=== PATIENT | female | born 1950 | race Hispanic/Latino ===

== ENCOUNTER → 2021-10-14 | Outpatient (CLI) | payer OTHER, MEDICARE ==
[~2021-10-14] MED LIST: AMLO-257 PO; CARV6.2579 PO; CETI10TA57 PO; DICY10CA13 PO; FLUT16H NS; FURO20TA4 PO; GLIM2TAB30 PO; HYDR25TA PO; INSLAN SQ; INSU100I35 SQ; LEVO50 PO; LOSA100T58 PO; MELO10CA3 PO; METO-391 PO; OXYB5TAB15 PO; SERT-439 PO; SITA100T12 PO; [UNRECOGNIZED DRUG - OTHER]
== END | disposition home or self-care (01) ==
LOC: RAH 11:08
PROVIDERS: ATTEND Internal Medicine
DX: Z12.31 Encounter for screening mammogram for malignant neoplasm of breast (principal)
CPT/HCPCS: 77067

== ENCOUNTER → 2021-10-26 | Outpatient (CLI) | payer OTHER, MEDICARE | END | disposition home or self-care (01) | LOC: RAH 10:55 | PROVIDERS: ATTEND Internal Medicine | DX: M47.816 Spondylosis without myelopathy or radiculopathy, lumbar region (principal); M54.50 Low back pain, unspecified | CPT/HCPCS: 72100 ==

== ENCOUNTER → 2021-11-18 | Outpatient (CLI) | payer OTHER | END | disposition home or self-care (01) | LOC: RAH 16:02 | PROVIDERS: ATTEND Internal Medicine | DX: M17.11 Unilateral primary osteoarthritis, right knee (principal) | CPT/HCPCS: 73560 ==

== ENCOUNTER → 2021-11-19 | Outpatient (CLI) | payer OTHER | LOC: RAH 08:52 | PROVIDERS: ATTEND Internal Medicine | DX: M17.12 Unilateral primary osteoarthritis, left knee (principal) | CPT/HCPCS: 73560 ==

== ENCOUNTER → 2022-01-05 | Outpatient (CLI) | payer OTHER, MEDICARE | END | disposition home or self-care (01) | LOC: SHCH 07:42 | PROVIDERS: ATTEND Internal Medicine | DX: I11.0 Hypertensive heart disease with heart failure (principal); I50.9 Heart failure, unspecified; E11.9 Type 2 diabetes mellitus without complications; E66.01 Morbid (severe) obesity due to excess calories | CPT/HCPCS: 93306 ==

== ENCOUNTER → 2022-10-21 | Outpatient (CLI) | payer OTHER, MEDICARE | END | disposition home or self-care (01) | LOC: RAH 08:38 | PROVIDERS: ATTEND Internal Medicine | DX: Z12.31 Encounter for screening mammogram for malignant neoplasm of breast (principal) | CPT/HCPCS: 77067 ==

== ENCOUNTER → 2024-02-07 | Outpatient (CLI) | payer OTHER, MEDICARE ==
[~2024-02-07] MED LIST changes: -DICY10CA13 PO; +DICY10CA2 PO; -LOSA100T58 PO; +LOSA100T59 PO; -OXYB5TAB15 PO; +OXYB5TAB20 PO
== END | disposition home or self-care (01) ==
LOC: RAH 15:46
PROVIDERS: ATTEND Internal Medicine
DX: M25.561 Pain in right knee (principal); M25.562 Pain in left knee

== ENCOUNTER → 2024-03-01 | Outpatient (CLI) | payer OTHER, MEDICARE ==
[2024-03-01 10:37] LABS: ALBUMIN 3.4 g/dL (3.5-5.0); BILIRUBIN,TOTAL 0.4 mg/dL (0.2-1.0); CREATININE 0.9 mg/dL (0.5-1.0); POTASSIUM 3.5 mmol/L (3.5-5.1); THYROID STIMULATING HORMONE 5.72 uIU/mL (0.36-3.74); TOTAL PROTEIN, SERUM 7.1 g/dL (6.0-8.3)
== END | disposition home or self-care (01) ==
LOC: LAB 09:20
PROVIDERS: ATTEND Internal Medicine
DX: E11.65 Type 2 diabetes mellitus with hyperglycemia (principal); N18.2 Chronic kidney disease, stage 2 (mild); E78.2 Mixed hyperlipidemia; E03.9 Hypothyroidism, unspecified
CPT/HCPCS: 36415; 80053; 80061; 82985; 84443

== ENCOUNTER → 2024-04-08 | Outpatient (CLI) | payer OTHER, MEDICARE | END | disposition home or self-care (01) | LOC: RAH 13:16 | PROVIDERS: ATTEND Internal Medicine | DX: E03.9 Hypothyroidism, unspecified (principal); R13.10 Dysphagia, unspecified; R09.89 Other specified symptoms and signs involving the circulatory and respiratory systems | CPT/HCPCS: 76536 ==

== ENCOUNTER → 2024-04-24 | Outpatient (CLI) | payer OTHER, MEDICARE ==
[~2024-04-24] MED LIST changes: +ALBUTEROL 0.083% 2.5 MG/3 ML INH IH ONE
== END | disposition home or self-care (01) ==
LOC: RESP 14:19
PROVIDERS: ATTEND Internal Medicine Cardiovascular Disease
DX: R06.02 Shortness of breath (principal)
CPT/HCPCS: 94060

== ENCOUNTER → 2024-09-02 | Outpatient (CLI) | payer OTHER, MEDICARE ==
[~2024-09-02] MED LIST changes: -ALBUTEROL 0.083% 2.5 MG/3 ML INH IH ONE; +DICY-20 PO; -DICY10CA2 PO
[2024-09-02 10:10] LABS: BASOPHILS # (AUTO) 0.07 K/uL (0.00-0.20); BASOPHILS % (AUTO) 0.8 % (0.0-5.0); EOSINOPHILS # (AUTO) 0.25 K/uL (0.00-0.70); EOSINOPHILS % (AUTO) 2.8 % (0.0-8.0); HEMATOCRIT 45.1 % (36-48); IMMATURE GRANULOCYTE ABSOLUTE 0.03 K/uL (0-1); LYMPHOCYTES # (AUTO) 3.2 K/uL (1.0-4.8); MEAN CORPUSCULAR HEMOGLOBIN 30.6 pg (27.0-33.0); MEAN CORPUSCULAR HGB CONC 33.9 g/dL (32.0-36.0); MEAN CORPUSCULAR VOLUME 90.2 fL (79-99); MONOCYTES # (AUTO) 0.5 K/uL (0.1-1.0); MONOCYTES % (AUTO) 5.1 % (3.0-13.0); NEUTROPHILS # (AUTO) 5.1 K/uL (1.8-7.7); PLATELET COUNT (AUTO) 262 K/uL (130-400)
[2024-09-02 10:30] LABS: HEMOGLOBIN A1C 7.6 % (4.0-6.0)
[2024-09-02 10:34] LABS: ALBUMIN 3.6 g/dL (3.5-5.0); BILIRUBIN,TOTAL 0.7 mg/dL (0.2-1.0); CREATININE 0.8 mg/dL (0.5-1.0); POTASSIUM 3.9 mmol/L (3.5-5.1); THYROID STIMULATING HORMONE 4.48 uIU/mL (0.36-3.74); TOTAL PROTEIN, SERUM 7.3 g/dL (6.0-8.3)
== END | disposition home or self-care (01) ==
LOC: LAB 09:14
PROVIDERS: ATTEND Internal Medicine
DX: I13.0 Hypertensive heart and chronic kidney disease with heart failure and stage 1 through stage 4 chronic kidney disease, or unspecified chronic kidney disease (principal); E11.22 Type 2 diabetes mellitus with diabetic chronic kidney disease; N18.2 Chronic kidney disease, stage 2 (mild); E11.65 Type 2 diabetes mellitus with hyperglycemia; I50.9 Heart failure, unspecified; E03.9 Hypothyroidism, unspecified; E78.2 Mixed hyperlipidemia
CPT/HCPCS: 36415; 80053; 80061; 82043; 82570; 83036; 83970; 84443; 85025

== ENCOUNTER 2024-10-31 16:04 | Emergency (ER) | payer OTHER, MEDICARE ==
[~2024-10-31] VITALS: Ht 142.2 cm; Wt 81.6 kg
[2024-10-31 16:05] VITALS: TEMP 97.6
--- NOTE | 2024-10-31 16:10 | NUR ---
PT JUST NOW PLACED IN MY ED BED 10
[2024-10-31] MEDS: LIDOCAINE 4% ADH..PATCH TP ONE (16:38)
[2024-10-31] MEDS: methoCARBamol 500 MG TABLET PO ONE (16:38)
[2024-10-31 17:00] LABS: BASOPHILS # (AUTO) 0.05 K/uL (0.00-0.20); BASOPHILS % (AUTO) 0.7 % (0.0-5.0); EOSINOPHILS # (AUTO) 0.25 K/uL (0.00-0.70); EOSINOPHILS % (AUTO) 3.3 % (0.0-8.0); HEMATOCRIT 42.2 % (36-48); IMMATURE GRANULOCYTE ABSOLUTE 0.03 K/uL (0-1); LYMPHOCYTES % (AUTO) 39.5 % (21.0-51.0); MEAN CORPUSCULAR HEMOGLOBIN 30.5 pg (27.0-33.0); MEAN CORPUSCULAR HGB CONC 33.4 g/dL (32.0-36.0); MEAN CORPUSCULAR VOLUME 91.1 fL (79-99); MONOCYTES # (AUTO) 0.5 K/uL (0.1-1.0); MONOCYTES % (AUTO) 6.4 % (3.0-13.0); NEUTROPHILS # (AUTO) 3.8 K/uL (1.8-7.7); NEUTROPHILS % (AUTO) 49.7 % (40.0-77.0); PLATELET COUNT (AUTO) 229 K/uL (130-400); RED BLOOD CELL COUNT(AUTO) 4.63 MIL/uL (4.00-5.50); RED CELL DISTRIBUTION WIDTH 13.4 % (11.0-15.5); WHITE BLOOD COUNT (AUTO) 7.6 K/uL (4.8-10.8)
--- NOTE | 2024-10-31 17:06 | HMCIMG ---
PORTABLE CHEST RADIOGRAPH INDICATION: shoulder pain COMPARISON: None FINDINGS: Heart size is normal. The pulmonary vascularity and blane appear normal. No abnormal pulmonary parenchymal opacity or consolidation identified. No significant pleural effusion noted. No pneumothorax detected. IMPRESSION: No radiographic evidence for any acute cardiopulmonary process.
[2024-10-31 17:09] LABS: CREATININE 0.7 mg/dL (0.5-1.0); POTASSIUM 3.5 mmol/L (3.5-5.1)
--- NOTE | 2024-10-31 17:11 | ERN ---
ED Note History of Present Illness Stated Complaint: BACK PAIN Chief Complaint: Back Injury Time Seen by MD: 16:06 Time Seen by Midlevel: 16:10 Dictation: 74-year-old female with a history of hypertension, cholesterol, diabetes coming in with complaints of left shoulder pain radiating to her neck area. Denies any trauma. Denies any chest pain or chest discomfort. Patient states the pain is worse when she moves her arm up or down. Allergies: Coded Allergies: No Known Allergies (Unverified Allergy, Unknown, 09/22/21) Home Meds Reported Medications [lotrison] No Conflict Check, .AD BID 09/23/21 Insulin NPH Hum/Reg Insulin Hm (Novolin 70-30 Flexpen) 100 Unit/1 Ml Insuln.pen, 3-8 UNIT SQ TIDMEALS for prn sliding scale 150-400, SYRINGE 09/23/21 Sertraline HCl (Sertraline HCl) 50 Mg Tablet, 50 MG PO DAILY, TAB 09/23/21 Oxybutynin Chloride (Oxybutynin Chloride) 5 Mg Tablet, 5 MG PO BIDAC, TAB 09/23/21 Metoprolol Succinate (Metoprolol Succinate) 50 Mg Tab.er.24h, 50 MG PO DAILY, TAB 09/23/21 Meloxicam, Submicronized (Meloxicam) 10 Mg Capsule, 7.5 MG PO DAILY, CAP 09/23/21 Losartan Potassium (Losartan Potassium) 100 Mg Tablet, 100 MG PO DAILY, TAB 09/23/21 Levothyroxine Sodium (Levothroid/Synthroid) 50 Mcg Tab, 25 MCG PO DAILY, TAB 09/23/21 Insulin Glargine,Hum.rec.anlog (Lantus) 100 Units/Ml Inj, 42 UNITS SQ HS, ML 09/23/21 Sitagliptin Phosphate (Januvia) 100 Mg Tablet, 100 MG PO DAILY, TAB 09/23/21 Hydrochlorothiazide (Hydrochlorothiazide) 25 Mg Tablet, 25 MG PO DAILY, TAB 09/23/21 Glimepiride (Glimepiride) 2 Mg Tablet, 2 MG PO DAILY, TAB 09/23/21 Furosemide (Furosemide) 20 Mg Tablet, 20 MG PO DAILY, TAB 09/23/21 Fluticasone Propionate (Fluticasone Propionate) 16 Gm [place].susp, 16 GM NS BID PRN for TWO SPRAYS TO EACH NOSTRIL 3/3/22 Dicyclomine HCl (Dicyclomine HCl) 10 Mg Capsule, 10 MG PO DAILY, CAP 09/23/21 Cetirizine HCl (Cetirizine HCl) 10 Mg Tablet, 10 MG PO DAILY, TAB 09/23/21 Carvedilol (Coreg) 6.25 Mg Tablet, 6.25 MG PO BID, TAB 09/23/21 Amlodipine Besylate (Amlodipine Besylate) 5 Mg Tablet, 5 MG PO DAILY, TAB 09/23/21 Past Medical History Past Medical History: Arthritis, Diabetes-Type II, High Cholesterol, Hypertension, Hypothyroid Surgical History: Hysterectomy, Tonsillectomy, Other Surgical History Other: CATARACS Social History: Negative Review of System Dictation Constitutional: Negative for fever,chills, and weight loss Eyes: Negative for injury, pain,redness, and discharge ENT: Negative for injury,pain or swelling Cardiovascular: Negative for chest pain, palpitations, and edema Respiratory: Negative for shortness of breath, cough, and wheezing, Abdomen/GI: Negative for abdominal pain, nausea, vomiting, diarrhea, and constipation Back: Negative for injury and pain : Negative for injury, bleeding and discharge MS/Extremity: Negative for injury and deformity Skin: Negative for rash, and discoloration, complaining of left shoulder pain radiating to the neck Neuro: Negative for headache, weakness, numbness, tingling, and seizure Psych: Negative for suicide ideation, homicidal ideation, and hallucinations Review of Systems: was completed Initial Vital Sign VS Vital Signs Date Time Temp Pulse Resp B/P (MAP) Pulse Ox O2 Delivery O2 Flow Rate FiO2 10/31/24 16:05 97.5 70 16 132/81 95 Room Air 0 Physical Exam Dictation General: awake, alert, NAD Head/Face: Normocephalic, atraumatic Eyes: PERRL, EOMI, vision at baseline ENT: oral cavity clear, TMs clear, no signs of infection Neck: Trachea midline, supple, no nuchal rigidity Cardiovascular: RRR, normal S1/S2, No MRGs, no JVD Respiratory: CTAB, no respiratory distress, No rales or wheezes Abdomen: Soft, non-tender, non-distended, normal bowel sounds, no guarding or rebound. Skin: Warm, dry, normal turgor, no rash MS/Extremity: Pulses equal, no cyanosis, neurovascular intact, FROM Neuro: COAx4, GCS 15, strength 5/5, CN 2-12 intact, normal cerebellar exam, normal gait, Psych: Normal behavior, mood, and affect normal Results (Laboratory/Radiology) Laboratory/Radiology Laboratory Tests Test 10/31/24 16:35 White Blood Count 7.6 K/uL (4.8-10.8) Red Blood Count 4.63 MIL/uL (4.00-5.50) Hemoglobin 14.1 g/dL (12.0-16.0) Hematocrit 42.2 % (36-48) Mean Corpuscular Volume 91.1 fL (79-99) Mean Corpuscular Hemoglobin 30.5 pg (27.0-33.0) Mean Corpuscular Hemoglobin Concent 33.4 g/dL (32.0-36.0) Red Cell Distribution Width 13.4 % (11.0-15.5) Platelet Count 229 K/uL (130-400) Mean Platelet Volume 9.5 fL (7.5-10.5) Immature Granulocyte % (Auto) 0.4 % (0-1) Neutrophils (%) (Auto) 49.7 % (40.0-77.0) Lymphocytes (%) (Auto) 39.5 % (21.0-51.0) Monocytes (%) (Auto) 6.4 % (3.0-13.0) Eosinophils (%) (Auto) 3.3 % (0.0-8.0) Basophils (%) (Auto) 0.7 % (0.0-5.0) Neutrophils # (Auto) 3.8 K/uL (1.8-7.7) Lymphocytes # (Auto) 3.0 K/uL (1.0-4.8) Monocytes # (Auto) 0.5 K/uL (0.1-1.0) Eosinophils # (Auto) 0.25 K/uL (0.00-0.70) Basophils # (Auto) 0.05 K/uL (0.00-0.20) Absolute Immature Granulocyte (auto 0.03 K/uL (0-1) Nucleated Red Blood Cells 0.0 % (0.0-0.19) Sodium Level 141 mmol/L (136-145) Potassium Level 3.5 mmol/L (3.5-5.1) Chloride Level 103 mmol/L (101-111) Carbon Dioxide Level 30 mmol/L (21-32) Blood Urea Nitrogen 15 mg/dL (7-18) Creatinine 0.7 mg/dL (0.5-1.0) Glomerular Filtration Rate Calc 90 mL/min (>90) Random Glucose 130 mg/dL (70-105) H Total Calcium 9.6 mg/dL (8.5-10.1) Troponin I High Sensitivity 8 ng/L (4-50) Labs Reviewed?: Yes EKG Comment: EKGs done at 4:17 p.m., sinus rhythm at 71, prolonged ME interval, left bundle branch block. X-RAY Comment: [facility] [id number] [place] [id number] IMAGING REPORT Signed PATIENT: OLIVIA BURKS I MR#: [id number] : 1950 SEX: F AGE: 74 LOCATION: [facility] ORDER 25 STATUS: REG ER REPORT#: [id number] SERVICE 23 REASON: shoulder pain ORDERING PHYSICIAN: RICHARD BOYD NP PROCEDURE: CXR1VW - CHEST 1VW PORTABLE CHEST RADIOGRAPH INDICATION: shoulder pain COMPARISON: None FINDINGS: Heart size is normal. The pulmonary vascularity and blane appear normal. No abnormal pulmonary parenchymal opacity or consolidation identified. No significant pleural effusion noted. No pneumothorax detected. IMPRESSION: No radiographic evidence for any acute cardiopulmonary process. DICTATED BY: NISSA VILLA MD DATE: 10/31/241702 ELECTRONICALLY SIGNED BY: NISSA VILLA MD DATE: 10/31/241705 ED Course ED Course Orders Procedure Category Date Status Time Cbc With Differential LAB 10/31/24 Complete 16:11 Basic Metabolic Panel LAB 10/31/24 Complete 16:11 Troponin I High LAB 10/31/24 Complete Sensitivity 16:11 12 Lead Ekg Tracing- EKG 10/31/24 Logged Technical 16:11 Chest 1vw RAD 10/31/24 Resulted 16:24 Methocarbamol PHA 10/31/24 Complete (Methocarbamol) 16:45 Lidocaine (Lidocaine PHA 10/31/24 Complete Patch 4%) 16:30 Sling ERICK 10/31/24 Verified 18:11 Current Medications Medications (Trade) Dose Ordered Sig/Anant Route PRN Reason Start Time Stop Time Status Last Admin Dose Admin Lidocaine (Lidocaine Patch 4%) 1 each ONCE ONCE TP 10/31/24 16:30 10/31/24 16:32 DC 10/31/24 16:38 Methocarbamol (methoCARBamol) 500 mg ONCE ONCE PO 10/31/24 16:45 10/31/24 16:46 DC 10/31/24 16:38 Vital Signs Date Time Temp Pulse Resp B/P (MAP) Pulse Ox O2 Delivery O2 Flow Rate FiO2 10/31/24 16:05 97.5 70 16 132/81 95 Room Air 0 Medical Decision Making MDM MDM: 74-year-old female with a history of hypertension, cholesterol, diabetes coming in with complaints of left shoulder pain radiating to her neck area. Denies any trauma. Denies any chest pain or chest discomfort. Patient states the pain is worse when she moves her arm up or down. On physical exam patient has clear bilateral lung sounds, abdomen is soft and nondistended. Pain on the left shoulder is reproducible on palpation and extends from the shoulder to the trapezius muscle and neck. Seems to be more musculoskeletal versus cardiac. EKGs shows no ST elevations shows a left bundle branch block, however looking at previous EKGs this is to be patient's baseline. Cardiac workup is negative. X-ray of the chest is within normal range. Patient feels relief when the arm is placed in a sling. Patient was evaluated by myself and ER MD. Discussed patient's case, okay for patient to be discharged home and follow up with PCP. Differential diagnosis: ACS, muscle strain, Rationale: Tests considered and ordered secondary to shared decision making include: labs, ECG and radiology Previous outside records reviewed: Old ER visits. Risk of complication and/or morbidity or mortality of patient management: None Medications-Per medication reconciliation Need for hospitalization: Patient does meet criteria for hospitalization. Need for emergency major/minor surgery: No There are no social concerns with this patient. Prescription drug management Prescriptions will include symptomatic care Patient's prior external medical records from other ER visits were reviewed by me as indicated. Prior testing and results from previous visits were reviewed. Prior tests were taken into account with medical decision making and resource utilization, independent historian/historians were used to obtain complete medical history. I independently interpreted the test that were performed, results were reviewed by me and considered findings on radiology if ordered. Medical management and examination interpretation discussions were had by me with other qualified healthcare professionals as indicated for the patient's care. DX & DISP Disposition: Discharge Departure Impression: Primary Impression: Left shoulder strain Additional Impression: Trapezius muscle strain Condition: Stable Additional Instructions: Leave your arm in the sling, elevate when possible, use ice to help with inflammation. Continue taking your muscle relaxer they your PCP has prescribed. Return to the hospital if you develop any shortness a breath, chest pain. Referrals: KRYSTIN MONTELONGO MD (PCP) Time of Disposition: 18:16 I have reviewed the case, and I agree with, Diagnosis and Plan RICHARD BOYD NP Oct 31, 2024 17:11
--- NOTE | 2024-10-31 17:13 | NUR ---
PT WAS CHANGED D/T A URINE INCONTINENCE
[2024-10-31 18:38] VITALS: BP 148/74; PULSE 67; RESP 17; O2SAT 94
--- NOTE | 2024-11-01 10:12 | EKG ---
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
== END 2024-10-31 18:47 | disposition home or self-care (01) ==
LOC: EDH 16:04
DX: S46.812A Strain of other muscles, fascia and tendons at shoulder and upper arm level, left arm, initial encounter (principal); S29.012A Strain of muscle and tendon of back wall of thorax, initial encounter; E03.9 Hypothyroidism, unspecified; E11.9 Type 2 diabetes mellitus without complications; E78.00 Pure hypercholesterolemia, unspecified; I10 Essential (primary) hypertension; M19.90 Unspecified osteoarthritis, unspecified site; Z79.1 Long term (current) use of non-steroidal anti-inflammatories (NSAID); Z79.84 Long term (current) use of oral hypoglycemic drugs; Z79.890 Hormone replacement therapy; Z79.899 Other long term (current) drug therapy; Z90.710 Acquired absence of both cervix and uterus; X58.XXXA Exposure to other specified factors, initial encounter; Y93.89 Activity, other specified; Y92.89 Other specified places as the place of occurrence of the external cause; Y99.8 Other external cause status
CPT/HCPCS: 36415; 71045; 80048; 84484; 85025; 93005; 99283

== ENCOUNTER → 2024-11-04 | Outpatient (CLI) | payer OTHER, MEDICARE ==
--- NOTE | 2024-11-04 13:53 | HMCIMG ---
Exam Type: SHOULDER COMP 2+VWS LT Clinical Information: LEFT SHOULDER PAIN Comparison: None FINDINGS: The examination is unremarkable. Specifically, the glenohumeral and acromioclavicular joints are preserved. Visualized portions of the humerus, the scapula, and the clavicle as well as the upper ribcage are unremarkable. No pulmonary pathology is noted in the visualized portions of the upper lobe. The soft tissues are preserved. There are no other gross abnormalities. IMPRESSION: NORMAL EXAMINATION.
== END | disposition home or self-care (01) ==
LOC: RAH 09:28
PROVIDERS: ATTEND Internal Medicine
DX: M25.512 Pain in left shoulder (principal)
CPT/HCPCS: 73030